=== PATIENT | male | born 1995 | race Two or more races ===

== ENCOUNTER → 2019-07-29 | Outpatient (REF) | payer OTHER ==
[2019-07-29 21:33] LABS: CHLAMYDIA DNA AMPLIFICATION NEGATIVE (NEGATIVE); GC DNA AMPLIFICATION POSITIVE (NEGATIVE)
== END ==
LOC: M SFHCLERA 12:56
PROVIDERS: ATTEND Physician Assistant
DX: R30.0 Dysuria (principal)

== ENCOUNTER 2020-01-19 15:44 | Emergency (ER) | payer OTHER ==
[~2020-01-19] VITALS: Ht 177.8 cm; Wt 79.5 kg
--- NOTE | 2020-01-19 16:28 | REP ---
Right foot: Four views. History: Trauma. Findings: Four views of the right foot show normal bones, joints and soft tissues. No fracture or subluxation is seen. Impression: No fracture seen. Negative radiographs of the right foot. Electronically Signed by Chris Cagle MD 01/19/2020 04:20 P
[2020-01-19] MEDS ORDERED: IBUP80TA PO (16:37)
[2020-01-19 16:51] VITALS: BP 133/80
== END 2020-01-19 16:54 | disposition home or self-care (01) ==
LOC: M ED 15:44
DX: S90.31XA Contusion of right foot, initial encounter (principal); W22.8XXA Striking against or struck by other objects, initial encounter; Y92.89 Other specified places as the place of occurrence of the external cause; Y93.89 Activity, other specified; Y99.1 Military activity; F17.290 Nicotine dependence, other tobacco product, uncomplicated